=== PATIENT | female | born 1980 | race Two or more races ===

== ENCOUNTER 2020-01-30 20:38 | Emergency (ER) | payer MEDICAID ==
[~2020-01-30] VITALS: Ht 152.4 cm; Wt 68.0 kg
[2020-01-30] MEDS ORDERED: SODIUM CHLORIDE 0.9% 1,000 ML IV ONE (21:18)
[2020-01-30] MEDS ORDERED: ACETAMINOPHEN 325MG TABLET PO STA (21:18)
[2020-01-30] MEDS ORDERED: CEFTRIAXONE 1 G PREMIX 50 ML IV ONE (21:30)
[2020-01-30 23:03] LABS: BASOPHILS % 0.2 % (0.0-2.0); EOSINOPHILS % 0.1 % (0.0-5.0); HEMATOCRIT. 38.5 % (36.0-48.0); HEMOGLOBIN. 13.5 g/dL (12.0-16.0); LYMPHOCYTES % 14.7 % (20.0-50.0); MEAN CORPUSCULAR HEMOGLOBIN 34.4 pg (28.0-32.0); MEAN CORPUSCULAR VOLUME 98.4 fL (81.0-99.0); MEAN PLATELET VOLUME 7.1 fl (7.4-10.4); MONOCYTES % 9.5 % (2.0-8.0); NEUTROPHILS % 75.5 % (40.0-76.0); PLATELET 226 x1000/uL (130-400); RED BLOOD CELL COUNT 3.92 mill/uL (4.2-5.4); RED CELL DISTRIBUTION WIDTH 12.8 % (11.6-14.6)
[2020-01-30 23:06] LABS: CHLORIDE 104 mEq/L (98-107)
[2020-01-30 23:09] LABS: HCG SCREEN NEGATIVE
[2020-01-31 01:00] VITALS: BP 108/55
== END 2020-01-31 01:33 | disposition home or self-care (01) ==
LOC: ER 20:38
DX: N10 Acute pyelonephritis (principal); R50.9 Fever, unspecified; R11.2 Nausea with vomiting, unspecified; E11.9 Type 2 diabetes mellitus without complications; Z87.440 Personal history of urinary (tract) infections
CPT/HCPCS: 36415; 74176; 80053; 82962; 84703; 85025; 87040; 96365; 96366; 99284; J0696; J7030